=== PATIENT | male | born 1985 | race Caucasian/White ===

== ENCOUNTER 2019-03-26 07:07 | Emergency (ER) | payer BC ==
[~2019-03-26] VITALS: Ht 170.2 cm; Wt 82.5 kg
[2019-03-26 07:12] VITALS: Ht 170.2 cm; Wt 82.5 kg
[2019-03-26] MEDS ORDERED: IBUPROFEN 800 MG TAB PO ONE (07:30)
[2019-03-26] MEDS ORDERED: NAPR-985 PO (08:54)
[2019-03-26 09:06] VITALS: BP 133/74; PULSE 71; RESP 18
--- NOTE | 2019-03-26 10:49 | ERD ---
ER Documentation Chief Complaint Chief Complaint L testicular pressure pain started 1 month ago,worse today HPI 33-year-old male presenting with left testicular pain. Patient states this h appened 2 months ago and it come and gone however at this time its been going on for last 2 days is gotten worse. He denies any new sexual partners no history of STDs. Denies any pain with urination denies any penile discharge. Denies fever. Denies medical problems. Family history of testicular cancer. NKDA. Surgical history denies. Social history smokes marijuana occasionally. ROS All systems reviewed and are negative except as per history of present illness. Medications Home Meds Active Scripts Naproxen* (Naprosyn*) 500 Mg Tablet, 500 MG PO BID PRN for PAIN AND/OR INFL AMMATION, #30 TAB Prov:GISSELLE LUTZ PA-C 03/26/19 Allergies Allergies: Coded Allergies: No Known Allergy (Unverified , 03/26/19) PMhx/Soc Medical and Surgical Hx: pt denies Medical Hx, pt denies Surgical Hx Hx Alcohol Use: No Hx Substance Use: Yes Hx Tobacco Use: No Smoking Status: Never smoker FmHx Family History: No diabetes, No coronary disease, No other Physical Exam Vitals Vital Signs Date Temp Pulse Resp B/P (MAP) Pulse Ox O2 O2 Flow FiO2 Time Delivery Rate 03/26/19 98.0 71 18 133/74 100 09:06 (93) 03/26/19 98.2 79 18 140/68 100 07:12 (92) Physical Exam GENERAL: The patient is well-appearing, well-nourished, in no acute distress CHEST: Clear to auscultation bilaterally. There are no rales, wheezes or rhonchi. HEART: Regular rate and rhythm. No murmurs, clicks, rubs or gallops. ABDOMEN:Soft, nontender and nondistended. Good bowel sounds. No rebound or g uarding. No gross peritonitis. No gross organomegaly or masses. : Tender to palpation in the left testicle with mild swelling. No induration. No warmth. Results 24 hrs Laboratory Tests Test 03/26/19 07:32 Urine Color YELLOW Urine Clarity CLEAR Urine pH 6.0 Urine Specific [place] 1.015 Urine Ketones NEGATIVE mg/dL Urine Nitrite NEGATIVE mg/dL Urine Bilirubin NEGATIVE mg/dL Urine Urobilinogen NEGATIVE mg/dL Urine Leukocyte Esterase NEGATIVE Radha/ul Urine Hemoglobin NEGATIVE mg/dL Urine Glucose NEGATIVE mg/dL Urine Total Protein NEGATIVE mg/dl Current Medications Medications Dose Sig/Charles Start Time Status Last (Trade) Ordered Route PRN Stop Time Admin Dose Reason Admin Ibuprofen 800 mg ONCE ONCE 03/26/19 DC 03/26/19 (Motrin) PO 07:30 07:34 03/26/19 07:31 Procedures/MDM DIAGNOSTIC IMAGING REPORT Patient: CHERRI HAWKINS : 1985 Age: 33 Sex: M MR #: [id number] DOS: 03/26/19 0727 Ordering MD: PETEY LUTZ PA-C Location: [facility] Room/Bed: PROCEDURE: Scrotal ultrasound CLINICAL INDICATION: Testicular pain. TECHNIQUE: Scrotal ultrasound was performed with sagittal and transverse views. [place] scale and color imaging was performed. Images were reviewed on high resolution PACS monitors. COMPARISON: None available FINDINGS: The right testicle measures 4.4 x 2.9 x 3.0 cm. The left testicle measures 4.2 x 2.6 x 2.7 cm. There is normal size and echogenicity and morphology bilaterally. There is normal color, Power and spectral Doppler both testis.. The epididymi are normal. Small bilateral hydroceles, left greater than right. There is no evidence for varicocele. The soft tissues are unremarkable. No mass or cyst or other abnormality is seen. IMPRESSION: 1. Small bilateral hydroceles, left greater than right. 2. Symmetrically normal testes and epididymi. MDM: 33-year-old male presenting with left testicular pain. I have low suspicion for torsion. Patient is discharged with strict ER precautions. I have low suspicion for epididymitis or STD. Patient's urine is sent for STD culture. Patient is told symptoms change or worsen to return immediately to the ER. Patient is recommended to avoid excessive exercise. All questions answered at discharge Departure Diagnosis: Primary Impression: Pain in testicle Condition: Stable Patient Instructions: Contusion, Testicles Or Scrotum Referrals: LEANN ROBLES MD Additional Instructions: Call your primary care doctor TOMORROW for an appointment during the next 1-2 days.See the doctor sooner or return here if your condition worsens before your appointment time. GISSELLE LUTZC Mar 26, 2019 10:49
== END 2019-03-26 09:08 | disposition home or self-care (01) ==
LOC: FTE 07:07
DX: N50.812 Left testicular pain (principal)
CPT/HCPCS: 76870; 81003; 87591